=== PATIENT | female | born 1995 | race African-American/Black ===

== ENCOUNTER 2021-11-26 21:10 | Emergency (ER) | payer SELFPAY ==
[~2021-11-26] VITALS: Ht 167.6 cm; Wt 111.0 kg
[~2021-11-26 21:10] MED LIST: PREN-88 PO
[2021-11-26 21:21] VITALS: BP 109/68
[2021-11-27 02:11] LABS: BASOPHILS % 0.8 % (0.0-2.0); EOSINOPHILS % 1.9 % (0.0-5.0); HEMATOCRIT. 38.4 % (36.0-48.0); HEMOGLOBIN. 12.9 g/dL (12.0-16.0); LYMPHOCYTES % 35.7 % (20.0-50.0); MEAN CORPUSCULAR HEMOGLOBIN 30.5 pg (28.0-32.0); MEAN CORPUSCULAR VOLUME 91.1 fL (81.0-99.0); MEAN PLATELET VOLUME 8.7 fl (7.4-10.4); MONOCYTES % 4.1 % (2.0-8.0); NEUTROPHILS % 57.5 % (40.0-76.0); PLATELET 317 x1000/uL (130-400); RED BLOOD CELL COUNT 4.21 mill/uL (4.2-5.4); RED CELL DISTRIBUTION WIDTH 16.6 % (11.6-14.6)
[2021-11-27 02:17] LABS: CHLORIDE 108 mEq/L (98-107)
[2021-11-27 02:20] LABS: PROTHROMBIN TIME 10.3 sec (9.6-11.0)
[2021-11-27 02:23] LABS: HCG SCREEN NEGATIVE
[2021-11-27] MEDS ORDERED: APIX5TAB MT (03:30)
== END 2021-11-27 03:30 | disposition left against medical advice (07) ==
LOC: ER 21:10
DX: I82.493 Acute embolism and thrombosis of other specified deep vein of lower extremity, bilateral (principal); M79.604 Pain in right leg; M79.605 Pain in left leg; Z68.39 Body mass index [BMI] 39.0-39.9, adult; F12.10 Cannabis abuse, uncomplicated; K59.00 Constipation, unspecified; Z87.440 Personal history of urinary (tract) infections
CPT/HCPCS: 36415; 80053; 84703; 85025; 93970; 99284